=== PATIENT | female | born 1985 | race Caucasian/White ===

== ENCOUNTER 2016-11-01 13:14 | Emergency (ER) | payer MEDICAID ==
--- OUTSIDE RECORDS SUMMARY | 2016-11-01 13:46 | XMS REPORT | Continuity of Care Document ---
:1985 Author Organization [facility] ([facility]) Address [address] [place] [address] Phone [phone] Care Team Providers Name Role Phone Darek Miller Primary Care Provider [phone] Source Comments This disclosure is being made pursuant to the Care Everywhere program, applicable federal and state laws, and may not contain all informaitonavailable regarding this patient.[facility] ([facility]) Active Allergies and Adverse Reactions Allergen Noted Date Severity Reactions Comments Mushroom 08/25/2016 Nausea & Vomiting Sulfa (Sulfonamide Antibiotics) 07/20/2016 Unknown Current Medications Prescription Sig. Disp. Refills Start End Date Status Date DULoxetine 60 mg Take 60 mg by Active XR capsule mouth daily. clonazePAM 1 mg 1 mg as needed. Active tablet etonogestrel Inject 1 Implant Active (NEXPLANON) 68 mg under the skin subdermal implant continuous. docusate (COLACE) Take 1 capsule 60 capsule 1 Active 100 mg capsule (100 mg total) by 7 mouth 2 times daily. traMADol 50 mg Take 1-2 tablets 60 tablet 1 Active tablet (50-100 mg total) 7 by mouth every 6 hours as needed for Pain. gabapentin 300 mg Take 2 capsules 180 capsule 3 Active capsule (600 mg total) by 7 mouth 3 times daily. oxyCODONE 5 mg Take 1-2 tablets 100 tablet 0 Active immediate release (5-10 mg total) by 7 tablet mouth every 4 hours as needed for Pain. baclofen 10 mg Take 1 tablet (10 90 tablet 0 Active tablet mg total) by mouth 7 3 times daily as needed for Muscle spasms. oxyCODONE-acetami Take 1 or 2 80 tablet 0 10/15/19 Discontinued nophen 5-325 mg tablets by mouth 7 17 per tablet every 4 hours as needed for Pain. Do NOT exceed 4000 mg of acetaminophen per 24 hours. baclofen 10 mg Take 1 tablet (10 90 tablet 0 10/15/19 Discontinued tablet mg total) by mouth 7 17 3 times daily as needed for Muscle spasms. gabapentin 300 mg Take 2 capsules 180 capsule 3 10/15/19 Discontinued capsule (600 mg total) by 7 17 mouth 3 times daily. oxyCODONE 5 mg Take 1-2 tablets 100 tablet 0 10/15/19 Discontinued immediate release (5-10 mg total) by 7 17 tablet mouth every 4 hours as needed for Pain. Earliest Fill Date: 09/20/16 Active Problems Problem Noted Date PONV (postoperative nausea and vomiting) 08/25/2016 Lumbar degenerative disc disease 07/21/2016 Chronic lumbar radiculopathy 07/21/2016 Most Recent Encounters Date Type Specialty Providers Description 10/14/2016 Office Visit Orthopaedic Eliecer Graham, Dx: Lumbar radicular MD pain (Primary Dx) 10/14/2016 Hospital Encounter Radiology Serenity Madden Dx: Lumbar radicular MD pain 09/20/2016 Refill Orthopaedic Eliecer Graham Dx: Chronic lumbar MD radiculopathy (Primary Dx) 09/07/2016 Office Visit Orthopaedic Eliecer Graham Dx: Chronic lumbar MD radiculopathy (Primary Dx) 09/06/2016 Telephone Orthopaedic Eliecer Graham Chief Comp: Review Of MD Concerns 08/30/2016 Nurse Triage Care Coordination Jessica Juarez Chief Comp: ELHAM Cristina RNairways operations specialist Follow-up Call 08/29/2016 Telephone Orthopaedic Maddie Pavon Chief Comp: Patient MD Candis Concern 08/28/2016 Orders/Notes Orthopaedic Radha Gilbert Dx: Post-operative MD German pain (Primary Dx) 08/28/2016 Pharmacy Visit 08/25/2016 Hospital Encounter Neurology Clare Johnson MD Dx: Chronic lumbar Eliecer Graham radiculopathy 08/25/2016 Surgery General Surgery Eliecer Graham, FUSION SPINE MD POSTERIOR THORACO/LUMBAR ( PLIF OR TLIF) 08/17/2016 Office Visit Orthopaedic Eliecer Graham Dx: Preop examination MD (Primary Dx) 08/17/2016 Hospital Encounter Radiology Serenity Madden, Chief Comp: Patient MD Reported Reason For Visit 08/16/2016 Telephone Cookie Breaker Telma Meyer Chief Comp: Questions M On Medicaid Programs Social History Tobacco Use Types Packs/Day Years Used Date Light Tobacco Smoker Cigarettes 0.5 10 Smokeless Tobacco: Never Used Tobacco Cessation:Ready to Quit: Yes; Counseling Given: Yes Comments: Alcohol Use Drinks/Week oz/Week Comments No Last Filed Vital Signs Vital Sign Reading Time Taken Blood Pressure 119/49 08/28/2016 4:00 PM COOK SHORT ORDER Pulse 102 08/28/2016 4:00 PM COOK SHORT ORDER Temperature 37.4 C (99.3 F) 08/28/2016 4:00 PM COOK SHORT ORDER Respiratory Rate 18 08/28/2016 4:00 PM COOK SHORT ORDER Height 1.753 m (5' 9") 08/25/2016 5:31 PM COOK SHORT ORDER Weight 81 kg (178 lb 9.2 oz) 08/25/2016 5:31 PM COOK SHORT ORDER Body Mass Index 26.36 08/25/2016 5:31 PM COOK SHORT ORDER Oxygen Saturation 100% 08/28/2016 4:00 PM COOK SHORT ORDER Plan of Care Date Type Specialty Providers Description 12/09/2016 Appointment Orthopaedic Eliecer Graham MD Chief Comp: Patient [address] [place] [address] [place] [address] [phone] (Fax) Health Maintenance Due Date Last Done Comments Hepatitis B Vaccine (1 of 3 - Primary Series) 1985 Tdap Vaccine 1994 Lipid Disorder Screening 2001 MMR Vaccine 2001 Td Vaccine 2001 Varicella Vaccine (1 of 2 - Adult - No Evidence of 2001 Immunity) Pneumococcal Vaccine (1 of 1 - PPSV23) 2002 Cervical Cancer Screening 2013 Influenza Vaccine: Seasonal (Season Ended) 2017 Procedures from Last 3 Months Procedure Name Priority Date/Time Associated Diagnosis Comments ABSTRACTED BY Routine 08/26/2016 6:29 Chronic lumbar Results for this BILLING STAFF AM COOK SHORT ORDER radiculopathy procedure are in the results section. FUSION SPINE 08/25/2016 7:30 Chronic lumbar POSTERIOR AM COOK SHORT ORDER radiculopathy THORACO/LUMBAR ( PLIF OR TLIF) Case Notes fluoro Results from Last 3 Months L SPINE AP& LATERAL STANDING (10/14/2016 9:27 AM)Only the most recent of2 resultswithin the time period is included. Impressions Findings / Impression: Postsurgical changes of posterior decompression and posterior spinal fusion from L4 through S1. Postsurgical changes of discectomy at L4-5 with placement of interbody fusion device. No evidence of interval hardware complication. Alignment is unchanged from prior exam. Negative for compression deformity. Previously demonstrated drain tubing is absent. Narrative Procedure: L SPINE AP & LATERAL STANDING Clinical Indication: L4 through sacrum posterior spinal fusion Comparison: Lumbar spine radiographs 08/27/2016, 08/25/2016, 05/17/2016 Procedure Note Emigdio, Incoming Imaging Results - Esthela Oct 14, 2016 5:44 PM CDT Procedure: L SPINE AP & LATERAL STANDING Clinical Indication: L4 through sacrum posterior spinal fusion Comparison: Lumbar spine radiographs 08/27/2016, 08/25/2016, 05/17/2016 IMPRESSION Findings / Impression: Postsurgical changes of posterior decompression and posterior spinal fusion from L4 through S1. Postsurgical changes of discectomy at L4-5 with placement of interbody fusion device. No evidence of interval hardware complication. Alignment is unchanged from prior exam. Negative for compression deformity. Previously demonstrated drain tubing is absent. BASIC METABOLIC PANEL W/ CALCIUM (CHEM 8) (08/28/2016 7:28 AM)Only the most recent of4 resultswithin the time period is included. Component Value Range Sodium 137 135-145 mEq/L Potassium 3.8 3.5-5.0 mEq/L Chloride 102 95-107 mEq/L CO2 25 22-29 mEq/L Anion Gap 10 8-18 mEq/L BUN 4(L) 10-20 mg/dL Creatinine 0.7Comment: 0.5-1.0 mg/dL Creatinine switched to enzymatic method on 11/10/2010.GFR equation switched to IDMS-traceable MDRD equation on 11/10/2010. Calculated GFR values are not valid in clinical settings where serum creatinine is changing. Glucose 116(H)Comment: 65-99 mg/dL The Expert Committee on the Diagnosis and Classification of Diabetes has defined impaired fasting glucose as greater than or equal to 100 mg/dL but less than 126 mg/dL.(Diabetes Care 28 (Suppl 1)S41,2005) Calcium 8.3(L) 8.5-10.5 mg/dL Calculated GFR >90 >60 mL/min/1.73 m2 Specimen Blood CBC (COMPLETE BLOOD COUNT) (08/28/2016 7:28 AM)Only the most recent of3 resultswithin the time period is included. Component Value Range WBC Count 11.0(H) 3.7-10.5 K/MM3 RBC Count 3.37(L) 4.00-5.20 M/MM3 Hemoglobin 9.6(L) 11.9-15.5 g/dL Hematocrit 30(L) 35-47 % MCV (Mean Corpuscular Volume) 89 82-99 FL MCH (Mean Corpuscular Hemoglobin) 29 25-35 PG MCHC (Mean Corpuscular Hemoglobin Concentration) 32 32-36 % Platelet Count 252 150-400 K/MM3 MPV (Mean Platelet Volume) 10.8 9.4-12.3 FL RBC Dist Width-STD 43.5 36.4-46.3 FL RBC Distrib Width 13.2 9.0-14.5 % Nucleated RBC 0 /100 WBC Specimen Whole Blood ORT OR CASE (08/26/2016 6:29 AM) Eliecer Ambriz MD 08/26/20166:29 AM OR CASE: FUSION SPINEPOSTERIOR THORACO/LUMBAR ( PLIF OR TLIF) Post-Op Procedure Note Operation/Procedure: Procedure(s) (LRB): FUSION SPINEPOSTERIOR THORACO/LUMBAR ( PLIF OR TLIF) (N/A) General Information: Date: 08/25/16 Time: 0730 Location: MAIN OR OR Room: [facility] OR Service: Orthopaedics Log ID: [id number] Surgeon: Surgeon(s) and Role: * Eliecer Graham MD - Primary * Shanta Winter MD - Resident - Assisting Staff Information: Scrub Nurse: Sabrina Dunham RN; Adriana Baptiste RN Circulating Nurse: Sabrina Dunham RN; Bernardo Parkinson RN Anesthesia: General Findings: No unexpected findings, see below. Blood Loss: 300 ml Implants: Implant Name Type Inv. Item Serial No. Fleet Service Clerk Lot No. LRB No. Used Action DURASEAL EXACT SPINE SEALANT 5ML - [id number] EXACT SPINE SEALANT 5MLINTEGRA_LIFESCIENCES [id number] N/A 1 Implanted XEMPLIFI DBM GEL 10CC - [id number] Tissue XEMPLIFI DBM GEL 10CC [employer]INC [id number] N/A 1 Implanted XEMPLIFI DBM GEL 5CC - [id number] Tissue XEMPLIFI DBM GEL 5CC [employer] [id number] N/A 1 Implanted CANCELLOUS CHIPS 4-10MM 30CC - [id number] Tissue CANCELLOUS CHIPS 4-10MM 30CCSPINALGRAFT_TECHNOLOGIES_[facility] [id number] N/A 1 Implanted SCREW CREO AMP MODULAR 6.0MM X 45MM - [id number] CREO AMP MODULAR 6.0MM X 45MMGLOBUS_MEDICAL_INCN/A 5 Implanted SCREW CREO AMP MODULAR 6.5MM X 55MM - [id number] CREO AMP MODULAR 6.5MM X 55MMGLOBUS_MEDICAL_INCN/A 1 Implanted SCREW CREO THRD COCR [place] - [id number] CREO THRD COCR TULIP HEADGLOBUS_MEDICAL_INCN/A 6 Implanted DARA CREO 5.5MM X 70MM CCR CURVED - [id number] CREO 5.5MM X 70MM CCR CURVEDGLOBUS_MEDICAL_INCN/A 1 Implanted CAP THREADED LOCKING CREO - [id number] THREADED LOCKING CREO GLOBUS_MEDICAL_INCN/A 6 Implanted DARA CREO 5.5MM X 65MM CCR CURVED - [id number] CREO 5.5MM X 65MM CCR CURVEDGLOBUS_MEDICAL_INCN/A 1 Implanted SPACER SIGNATURE TLIF TI LARGE 9MM - [id number] SPACER SIGNATURE TLIF TI LARGE 9MM [employer] N/A 1 Implanted Specimens: * No specimens in log * Complications: None; patient tolerated the procedure well. Condition: PACU - hemodynamically stable. Return to the OR planned in the next 30 days? No Readmission planned in the next 30 days? No BMI=26.65 kg/(m^2) (as of 08/17/16) Operative Report Completion Pre-op Diagnosis: * Chronic lumbar radiculopathy [M54.16] Post-op Diagnosis: PREOPERATIVE DIAGNOSIS: Lumbar radiculopathy.Failed back surgery. POSTOPERATIVE DIAGNOSIS: Same, except L5 spondylolisthesis discovered intraoperatively, and significant facet arthropathy at L5-S1. PROCEDURE: Posterolateral including posterior interbody arthrodesis, L4-L5. Posterolateral arthrodesis L5-S1. Decompression, including bilateral foraminotomies at L4-L5 and L5-S1. Instrumentation using bilateral pedicle screw fixation at L4, L5 and S1. Insertion of interbody device at L4-L5. Use of local autograft. Use of allograft. Use of neurologic monitoring. INDICATIONS: A 31-year-old female who had three previous spine surgeries.She had multiple decompressions and diskectomies of L4-L5 and L5-S1. She had persistent right greater than left leg pain radiating down below the knee.She had a clear foraminal stenosis of a far lateral disk herniation, and a significant foraminal stenosis, as well as degenerative facet joints at L4 and L5.We initially discussed doing an isolated L4-L5 fusion.Risks and benefits of the fusion were discussed.We discussed the possibility of extension to additional levels. This will be discussed further within the procedure but, after we had exposed and verified our levels, we did discover there appeared to be an occult spondylolisthesis at L5.There was some disconnection between the superior facets of L5, and the inferior facets of L5.At that point we did decide we could not leave the patient's obvious fracture at the level below our planned fusion, so we had decided to include S1 in the fusion. PROCEDURE: The patient was seen in the preoperative holding area.Her back was marked.She was brought back by Anesthesia, where general anesthesia was induced.All neuro monitoring leads were placed. Huerta catheter was placed.The patient was flipped prone to the operating table.All bony prominences were well-padded.We then prepped and draped in normal sterile fashion.A timeout was executed.Perioperative antibiotics had been administered. The procedure was begun by tracing down through her existing incision, her scar, and a sharp knife dissection was taken down along the spinous processes of L4 and L5.We dissected out to the facets.We then used fluoroscopy to verify our levels. There was extensive scarring along the lamina of L4, the lamina of L5.There was quite a bit of scarring and lamina thinning around the lamina of 5.Upon further inspection, we noticed that there was seemingly a disconnect between the superior and inferior facets of L5.We took the laminar casting room operator and placed in between.We used a Leksell rongeur to remove the spinous process of L5, and found that there was indeed some disconnect. We then proceeded to dissect lateral to the facet joints at L5-S1.At this point, we made an intraoperative decision to extend the fusion down to L5 and S1.We then performed bilateral Inferior facetectomies of L5 and L4.We used caution to preserve the joint at L3-4.Dissection was continued out to the transverse processes bilaterally.We then placed our pedicle screws, using fluoroscopic guidance, at L4, L5 and S1.We then proceeded with the decompression.We used a Leksell rongeur, to remove the spinous processes of L5, part of the spinous process of L4, and part of S1.We then used a combination of Leksell and a Kerrison to remove some scar, and performed a central decompression of the L5 lamina on top of the S1 lamina. We then used extensive osteotome work to remove the most of the pars from the right side of L4, pened at decompressing the canal essentially.Osteotome was then used to perform aggressive medial facetectomy, and the L5 pedicle was skeletonized.The exiting nerve root was identified and swept North.Dissection was taken down, and the entire dura was decompressed essentially at L4-5, and was enveloped in significant scar from the pedicle of L5, and pressed everything medially, and isolated the pedicle and disk.The transverse and exiting nerve were both identified. We then used a [place] 4 to further sweep and isolate the disk, protecting the dura and nerve roots with a nerve root retractor. A sharp knife was used to incise the disk.The disk material was then removed with a pituitary rongeur.We used a series of disk knives, up to a size 9, and used a series of curettes, to remove and prepare the endplates.We spent quite a bit of time, consisting of 20 minutes, performing a very thorough decortication at this level.The trials were then fit.The disk space was then packed with 5 mL of autograft.A size 9 posterior lumbar interbody fusion (PLIF) cage was then selected, and then inserted into the disk space at L4-L5.This was selected, and then verified with fluoroscopy. After this was completed, we verified our decompressions were complete.We then placed final rods, spanning from L4 to L5 to sacrum on both sides, and compressed down slightly to capture the cage.The spine was then thoroughly decorticated at the transverse processes and lamina.DuraSeal was placed over the TLIF site, to protect the nerve root and dura from any bone graft that may fall in.The combination of autograft, roughly 20 cc local autograft, and 30 cc of a combination of demineralized bone matrix (DBM) and corticocancellous graft, was packed into the lateral recesses, and then essentially on the left side. The wound was then closed over a deep drain, #1 Vicryls running jorge stitch.Another drain.2-0 Vicryls and 2-0 Prolenes, given her scar.We did place 1 gram of vancomycin into the wound.A sterile dressing was applied. The patient awoke and was taken in the PACU without complication. Indications/Procedure Details: Disposition: Admitted Attending Attestation: Eliecer Graham MD was present for the entire procedure. Eliecer Graham MD TISSUE BANK: [facility] BONE [id number] (08/26/2016)TISSUE BANK: [facility] BONE CHIPS- GROUND BONE-WEDGES (08/26/2016)L SPINE AP& LATERAL (08/25/2016 1:28 PM) Impressions Findings / Impression: Interval L4-S1 posterior spinal fusion and L4-L5 intervertebral disc spacer without hardware complications. Narrative Procedure: L SPINE AP & LATERAL Clinical Indication: Status post posterior spinal fusion hardware Comparison: External plain films dated 05/17/2016 Procedure Note Emigdio, Incoming Imaging Results - Wed Aug 25, 2016 5:37 PM COOK SHORT ORDER Procedure: L SPINE AP & LATERAL Clinical Indication: Status post posterior spinal fusion hardware Comparison: External plain films dated 05/17/2016 IMPRESSION Findings / Impression: Interval L4-S1 posterior spinal fusion and L4-L5 intervertebral disc spacer without hardware complications. EEG - OR MONITORING - PEDICLE SCREW SURGERY (08/25/2016 12:34 PM) Narrative Ludwig Dos Santos MD 08/25/2016 12:34 PM Department of Neurology Division of Neurophysiology EEG - OR EP MONITORING (SPINAL CORD MONITORING) Intra-operative Monitoring Identifying Information Patient Name:MARILU LIVINGSTON Age and sex:31 y.o. female Requesting Provider: Eliecer Graham MD Reason for the request: Request neurophysiologic monitoring to monitor spinal cord function during fusion of the thoracic-lumbar spine Procedure Date of Test:08/25/2016 Spinal level for Monitoring: thoracic-lumbar Physician Monitoring Times:From:08:25 AM To:11:34 AM Total Physician Monitoring Time: 3 hour and 9 minutes Data Interpretation: Neurophysiologic monitoring using somatosensory evoked potentials (SSEP) and motor evoked potentials (MEP) was done to assess for early changes in function to protect the nervous system during the surgical procedure. SSEP RECORDING DATA Upper Extremities SSEP for both upper extremities using ulnar nerve stimulation showed consistent responses. The SSEP latency of the N20 peak potential for both upper extremities was 21.6 msec. [latency variation was in range] Lower Extremities SSEP for both lower extremities using tibial nerve stimulation showed consistent responses. The SSEP latency of the P37 peak potential for both lower extremities was 41.4 msec. [latency variation was in range] SEP IMPRESSION There was no significant change noted in upper and lower SSEP responses during the procedure MEP RECORDING DATA Muscle Level Left Right Abductor Digiti Minimi C8-T1 consistent consistent Adductor Longus L2-L4 consistent consistent Vastus Medialis L3-L4 consistent consistent Rectus Femoris L4 consistent consistent Tibialis Anterior L4-L5 consistent consistent Extensor Hallucis Longus L5-S1 consistent consistent Abductor Hallucis S1-S2 consistent consistent Comments: MEP IMPRESSION: There was no significant change in both upper and lower MEPs during the procedure. Impression: There was no significant change in both upper and lower SSEPs and MEPs during the procedure. Staff Involved Staff Only IOM Physician: Ludwig Dos Santos MD Neurology Staff Electronically signed Technologist Form Surgeon: Gladys Anesthesiologist: Drew Technologist: Griselda Surgical Procedure: Lumbar FusionSpine Level: L4-S1 Room number: 29 Machine: [id number] Technologist time: Set up: MonitorinEnd Monitoring : 1134 Monitoring Procedure: The IONM data was continuously collected throughout the surgery by IONM technologist in the operating room. The live IONM data was sent by online internet connection to the physician (Dr. Dos Santos) to review the incoming data during surgery. For upper extremity SSEP, (left-right), (ulnar) nerves were stimulated using bipolar electrodes. The stimulus intensity was15 mA (range) at the stimulus rate of 3.07 HZ. The recording electrodes were (CP3, CP4, CPz, A1, A2). For lower extremity SSEP, (left and right), (tibial) nerves were stimulated using bipolar electrodes. The stimulus intensity was 25 mA (range) at the stimulus rate of 3.07 HZ. The recording electrodes were (CP1, CP2, CPZ, FZ, A1, A2). For MEP, CMAPs were recorded from (left, right) (abductor brevis) for upper extremity and (tibialis anterior, abductor hallucis, vastus lateralis, extensor hallucis longus, adductor longus, rectus femoris) for lower extremity studies. The stimulus intensity was up to 700 volt (range) and up to 1404 mA (range). The stimulus electrodes were (C3, C4). The (8) trains with a 1 msec interval of stimulus parameter was noted. Technologist comment: 40 [place] placed for SSEP, MEP, and EMG monitoring per surgeon request. Pedicle Screw Pedicle Screws Tested: LEFT RIGHT LevelCurrentResult Level Current Result A713Toir L415 Pass [id number] L510 Intermediate [id number] S122 Pass Anesthesia: Anesthesia was maintained by (Sevoflurane) at concentration of up to 0.9 in range. MAC level was up to 0.4. Other anesthetic used was propofol, remifentanil. [place] pulled by Griselda (40 Total) FLUORO C-ARM: MORE THAN ONE HOUR (08/25/2016 11:32 AM)TYPE AND SCREEN (BLOOD TYPE(ABORH) AND RBC ANTIBODY SCREEN) (08/25/2016 7:05 AM) Component Value Range ABORH O Positive Specimen Expiration Date 2016-08-28 Antibody Screen Negative Specimen Blood URINE , POINT OF CARE (08/25/2016) Component Value Range POC URINE NegativeComment:HCG:LOT 12500 POC POWER GENERATING PLANT OPERATOR Satisfactory DIFFERENTIAL (08/17/2016 10:22 AM) Component Value Range % Neutrophils-Auto Diff 49.1 % Neutrophils-Auto Diff 3300 5540-4539 /MM3 % Lymphocytes-Auto Diff 40.4 % Lymphocytes-Auto Diff 2720 875-3300 /MM3 % Monocytes-Auto Diff 8.0 % Monocytes-Auto Diff 540 130-860 /MM3 % Eosinophils-Auto Diff 2.1 % Eosinophils-Auto Diff 140 40-390 /MM3 % Basophils 0.3 % Basophils-Auto Diff 20 10-136 /MM3 % Immature Granulocytes-Auto Diff 0.1 % Immature Granulocytes-Auto Diff 10 /MM3 Specimen Whole Blood CBC (COMPLETE BLOOD COUNT) (08/17/2016 10:22 AM) Component Value Range WBC Count 6.7 3.7-10.5 K/MM3 RBC Count 4.49 4.00-5.20 M/MM3 Hemoglobin 13.1 11.9-15.5 g/dL Hematocrit 40 35-47 % MCV (Mean Corpuscular Volume) 89 82-99 FL MCH (Mean Corpuscular Hemoglobin) 29 25-35 PG MCHC (Mean Corpuscular Hemoglobin Concentration) 33 32-36 % Platelet Count 372 150-400 K/MM3 MPV (Mean Platelet Volume) 11.3 9.4-12.3 FL RBC Dist Width-STD 41.1 36.4-46.3 FL RBC Distrib Width 12.7 9.0-14.5 % Nucleated RBC 0 /100 WBC Specimen Whole Blood CBC WITH DIFFERENTIAL (08/17/2016 10:22 AM) Specimen Whole Blood Narrative The following orders were created for panel order CBC WITH DIFFERENTIAL. Procedure Abnormality Status --------- ------ CBC (COMPLETE BLOOD COUNT)[[id number]] Final result DIFFERENTIAL[[id number]] Final result Please view results for these tests on the individual orders. PT/INR (PROTHROMBIN TIME/INR) VENOUS (08/17/2016 10:22 AM) Component Value Range PT (Prothrombin Time) 10 9-12 secs INR 1.0 <4.0 Specimen Blood MRSA/SA PCR (08/17/2016 10:21 AM) Component Value Range MRSA by PCR Negative Negative S. AUREUS by PCR NegativeComment:Negative for SA Negative Specimen Nasal Swab (MRSA) - Nasal Swab Narrative Test methodology:PCR amplification; Xpert SA Test (eyetok) CT LUMBAR SPINE WO CONTRAST ([id number]) (08/17/2016 9:04 AM) Impressions Impression: 1. Postsurgical changes at L4-5 with L5 superior facet resection. 2. Mild to moderate multilevel degenerative changes, most notable at L4-5 as described. Narrative Procedure:CT LUMBAR SPINE WO CONTRAST ([id number]) Indication: Surgical planning, L4-5 decompression and posterior spinal fusion. Technique: CT of the lumbar spine was performed without contrast. Sagittal and coronal reformations were obtained. Findings: There are 5 lumbar-type nonrib-bearing vertebra. Postsurgical changes are noted at L4-5 with resection of the superior facet of L5. Normal lumbar lordosis. Vertebral body heights are maintained. There is no acute fracture. Cholecystectomy clips are seen in the right upper abdomen. The level by level analysis is as below: T12-L1: No significant canal stenosis or bony neural foraminal narrowing. L1-2: No significant canal stenosis or neural foraminal narrowing. L2-3: No significant disc bulge or canal stenosis or neural foraminal narrowing. L3-4: Tiny osteophytes. Mild disc bulge, mild bilateral facet joint arthropathy, with mild thecal sac deformity without significant neural foraminal stenosis. L4-5: Mild disc space narrowing, endplate cystic changes and tiny osteophytes. There is mild to moderate disc bulge, facet capsular hypertrophy, buckling of the ligamentum flavum. The combination of these cause moderate to severe deformity of the thecal sac and mild bilateral neural foraminal narrowing. L5-S1: L5 superior facet resection. There is a small disc osteophyte with moderate deformity of the thecal sac and mild bilateral neural foramina. Procedure Note Emigdio, Incoming Imaging Results - [facility] Aug 17, 2016 2:14 PM [facility] SHORT ORDER Procedure:CT LUMBAR SPINE WO CONTRAST ([id number]) Indication: Surgical planning, L4-5 decompression and posterior spinal fusion. Technique: CT of the lumbar spine was performed without contrast. Sagittal and coronal reformations were obtained. Findings: There are 5 lumbar-type nonrib-bearing vertebra. Postsurgical changes are noted at L4-5 with resection of the superior facet of L5. Normal lumbar lordosis. Vertebral body heights are maintained. There is no acute fracture. Cholecystectomy clips are seen in the right upper abdomen. The level by level analysis is as below: T12-L1: No significant canal stenosis or bony neural foraminal narrowing. L1-2: No significant canal stenosis or neural foraminal narrowing. L2-3: No significant disc bulge or canal stenosis or neural foraminal narrowing. L3-4: Tiny osteophytes. Mild disc bulge, mild bilateral facet joint arthropathy, with mild thecal sac deformity without significant neural foraminal stenosis. L4-5: Mild disc space narrowing, endplate cystic changes and tiny osteophytes. There is mild to moderate disc bulge, facet capsular hypertrophy, buckling of the ligamentum flavum. The combination of these cause moderate to severe deformity of the thecal sac and mild bilateral neural foraminal narrowing. L5-S1: L5 superior facet resection. There is a small disc osteophyte with moderate deformity of the thecal sac and mild bilateral neural foramina. IMPRESSION Impression: 1. Postsurgical changes at L4-5 with L5 superior facet resection. 2. Mild to moderate multilevel degenerative changes, most notable at L4-5 as described.
[2016-11-01 14:04] LABS: Hematocrit 36.9 % (37.0-47.0); Hemoglobin 11.8 gm/dL (12.5-16.0); Mean Cell Volume 87.2 fl (78-100); Mean Corpuscular Hemoglobin 27.9 pg (27-31); Mean Platelet Volume 10.1 fl (6.0-9.5); Neutrophil # 4.5 K/mm3 (1.3-6.0); Neutrophil % 59.1 % (42-75.0); Platelet Count 413 K/mm3 (150-450); Red Blood Count 4.23 M/mm3 (4.2-5.4); Red Cell Distribution Width 13.3 % (11.5-14.0); White Blood Count 7.6 K/mm3 (4.0-10.5)
[2016-11-01 14:07] LABS: Albumin * 3.2 gm/dl (3.4-5.0); Anion Gap 11.6 mmol/L (6.8-13.8); BUN/Creatinine Ratio 10.7 (9.0-21.6); Bilirubin, Total 0.2 mg/dL (0.0-1.1); Ca. Corrected For Albumin 8.8 mg/dL (8.4-10.2); Calcium * 8.5 mg/dL (7.9-10.9); Carbon Dioxide 29.3 mmol/L (24-32.6); Potassium 3.9 mmol/L (3.4-4.6); Total Protein 7.1 gm/dL (6.2-8.2)
[2016-11-01 14:16] LABS: Urine Bilirubin Negative (NEGATIVE); Urine Blood Negative /ul (NEGATIVE); Urine Ketone Negative (NEGATIVE); Urine Nitrite Negative (NEGATIVE); Urine Protein Negative (NEGATIVE); Urine Urobilinogen Normal (NORMAL)
--- NOTE | 2016-11-01 14:24 | ERNOTE ---
Dizziness ER Record Date of Service: 11/01/16 Presenting Symptoms: dizziness, other - syncope Time Seen by Provider: 11/01/16 13:38 Source: patient, RN notes reviewed, old records Exam Limitations: no limitations Immunizations: IMMUNIZATION HX Immunizations Up to Date Yes History of Influenza Vaccine Yes Hx Pneumococcal Vaccination Yes Allergies/Adverse Reactions: Allergies Allergy/AdvReac Type Severity Reaction Status Date / Time Sulfa (Sulfonamide Allergy Unknown Verified 11/01/16 13:25 Antibiotics) [Sulfa(Sulfonamide Antibiotics)] Home Medications: HOME MEDICATIONS oxyCODONE HCL/ACETAMINOPHEN [Percocet 5 MG/325 MG] 1 tab PO Q3H PRN #0 tablet [Last Taken Unknown] Buspirone HCl 7.5 mg PO BID #30 tablet 11/01/16 [Last Taken Unknown] Gabapentin [Neurontin] 600 mg PO DAILY 11/01/16 [Last Taken Unknown] - History of Present Illness Narrative: 31 y/o female ambulatory to the ED for numbness and tingling in her face and hands intermittently for 2 weeks. She also become lightheaded. Two days ago she became lightheaded in the shower and passed out. She reports that her arms and legs jerked like she was having a seizure. She has not prior history of seizures. She had back surgery earlier this year and is still routinely taking oxycodone. She had also been on Cymbalta until recently. She reports that her PCP has given her clonopin in the past and this has worked well. She also has a history of drug abuse treatment. Timing and Duration: gone now Associated Symptoms: Present: ringing/roaring in ear, nausea, vomiting - once this morning, light headedness. Absent: hearing loss, ear pain, headache, weakness, numbness, sense of confusion Sense of movement: Present: vague Fainted/near fainted while:: Present: standing Decreased ability to stand/walk:: Present: walks w/o assistance Usually:: Present: walks w/o assistance Modifying Factors - (Improves): Reports: nothing Modifying Factors - (Worsens): Reports: nothing Prior Treament: Denies: recently seen, similar symptoms before Review of Systems - Review of Systems Constitutional: Absent: recent illness, fever, chills EYE: Absent: eye pain, vision changes ENT: Absent: ear pain, nose congestion, sore throat Respiratory: Present: cough. Absent: shortness of breath Cardiology: Present: syncope. Absent: chest pain, palpitations Gastrointestinal/Abdominal: Absent: diarrhea, abdominal pain Genitourinary: Absent: frequency, dysuria Musculoskeletal: Present: no symptoms reported Skin: Absent: rash, lesions Neurological: Present: dizziness/light-headedness. Absent: headache Endocrine: Present: no symptoms reported Hematologic/Lymphatic: Present: no symptoms reported Psych: Present: anxiety, depressed - Patient's Past Medical History Patient History - Medical: Depression, GERD, Migraines Patient History - Cardiac/Respiratory: No pertinent hx Patient History - Cancer: No Hx of Cancer Patient History - Surgical Procedures: Back Surgery, Cholecystectomy, , Orthopedic Patient History - Other: None LMP (females 10-50): 1 month - Social History Living Situations: home Abuse History: No History of abuse Psych History: Hx of Anxiety, Hx of Depression Smoking Status: Current every day smoker Cigarettes Packs Per Day: 0.3 Alcohol Use: none Drug Use: none - Immunizations Immunizations Up to Date: Yes Hx Pneumococcal Vaccination: Yes History of Influenza Vaccine: Yes Physical Exam - Physical Exam General Appearance: Present: wd/wn, alert, no apparent distress Eye Exam: Normal inspection: bilateral, PERRL: bilateral Ears, Nose, Throat: Present: normal ENT inspection Neck: Present: normal inspection, nontender, supple Respiratory: Present: no respiratory distress, normal breath sounds, no accessory muscle use, lungs clear Cardiovascular/Chest: Present: regular rate, rhythm, no murmur, normal peripheral pulses Extremity Exam: Present: normal inspection, normal range of motion Neurological Exam: Present: alert, oriented, no motor/sensory deficits. Absent : normal mood/affect - dysphoric Skin Exam: Present: normal color, warm/dry ED Progress - Results and Orders Patient's Lab Results:: I have reviewed the patient's lab results. - Vital Signs Patient's Vital Signs:: I have reviewed the patient's vital signs. Vital Signs: Vital Signs 11/01/16 11/01/16 13:16 14:05 Temperature 36.1 C L Pulse Rate 85 79 Respiratory 14 Rate Blood Pressure 125/73 O2 Sat by Pulse 100 Oximetry - EKG EKG: NSR EKG read: Reviewed by me - Progress/Reassessment Chief Complaint: Dizziness Progress:: Unchanged Plan - Plan Plan: Discussed lab results - unremarkable aside from drug screen negative for opiates when she claims she is still taking oxycodone daily but positive for marijuana. She insists that she just took her oxycodone on the way here. Discussed taking clonopin - may not be a good choice d/t her syncopal episode and given her history of drug abuse. Wants something for anxiety. Contacted Dr. Miller, he recommended Buspar as well as going back on the Cymbalta. She still has refills on the Cymbalta, rx given for Buspar. To f/u with Dr. Miller as scheduled next week. Departure Clinical Impression: Marijuana use Syncopal episodes Qualifiers: Syncope type: unspecified Qualified Code(s): R55 - Syncope and collapse Anxiety disorder Qualifiers: Anxiety disorder type: unspecified anxiety disorder Qualified Code(s): F41.9 - Anxiety disorder, unspecified - Departure Disposition: Home Follow Up Needed Condition: Stable Instructions: Syncope, [id number] Additional Instructions: Restart Cymbalta along with Buspar Stop using marijuana See your doctor as scheduled Referrals: Darek Miller DO [Primary Care Provider] - 11/11/16 9:45 am Prescriptions: Buspirone HCl 7.5 mg PO BID #30 tablet
[2016-11-01 14:27] LABS: Urine Appearance Clear; Urine Bacteria TRACE; Urine Color Yellow; Urine RBC None Seen /hpf (0-5); Urine WBC None Seen /hpf (0-5)
[2016-11-01 14:30] LABS: Cocaine Ur Negative (NEGATIVE); Urine Barbiturate Negative (NEGATIVE); Urine Benzodiazepines Negative (NEGATIVE); Urine Opiates Negative (NEGATIVE); Urine PCP Negative (NEGATIVE)
[2016-11-01 14:36] LABS: Urine THC Positive (NEGATIVE)
[2016-11-01 15:44] VITALS: BP 128/83
== END 2016-11-01 15:33 | disposition home or self-care (01) ==
LOC: ER 13:14
DX: F12.90 Cannabis use, unspecified, uncomplicated (principal); R55 Syncope and collapse; F41.9 Anxiety disorder, unspecified; F17.210 Nicotine dependence, cigarettes, uncomplicated